=== PATIENT | male | born 1950 | race Caucasian/White ===

== ENCOUNTER 2020-10-21 07:40 | Outpatient (REF) | payer MEDICARE, SELFPAY ==
[2020-10-21 08:11] LABS: MANUAL DIFF FLAG NO
[2020-10-21 08:15] LABS: Basophils Absolute Auto 0.1 X10*3/uL (0.0-0.2); Basophils Percent Auto 0.8 % (0-2); Eosinophils Absolute Auto 0.2 X10*3/uL (0.0-0.4); Eosinophils Percent Auto 3.8 % (0-4); Hematocrit 40.5 % (42-52); Hemoglobin 13.3 g/dl (14.0-18.0); Imm Gran Abs Auto 0.03 X10*3/uL (0.00-0.03); Imm Gran Pct Auto 0.5 % (0.0-0.4); Lymphocytes Absolute Auto 1.5 X10*3/uL (1.2-4.9); Lymphocytes Percent Auto 23.6 % (20-40); Mean Corpuscular HGB Conc 32.8 g/dl (31.0-36.0); Mean Corpuscular Hemoglobin 32.6 pg (27.0-33.0); Mean Corpuscular Volume 99.3 fL (80-98); Mean Platelet Volume 10.7 fL (9.4-12.4); Monocytes Absolute Auto 0.6 X10*3/uL (0.1-1.2); Neutrophils Percent Auto 62.3 % (45-73); Platelet Count 246 X10*3/uL (160-400); Red Blood Count 4.08 X10*6/uL (4.60-5.80); Red Cell Distribution Width 14.4 % (11.0-16.0); White Blood Count 6.4 X10*3/uL (4.8-10.8)
[2020-10-21 08:25] LABS: Estimated Average Glucose 77 mg/dL; Hemoglobin A1c % 4.3 %
[2020-10-21 08:52] LABS: Alanine Aminotransferase 160 U/L (0-40); Albumin Level 4.1 g/dL (3.5-5.0); Alkaline Phosphatase 719 U/L (39-117); Anion Gap 15 (12-20); Aspartate Amino Transferase 106 U/L (5-37); Bilirubin Total 6.9 mg/dL (0.0-1.0); Blood Urea Nitrogen 17 mg/dL (9-16); Calcium 9.1 mg/dL (8.4-10.2); Carbon Dioxide 23 mmol/L (22-29); Chloride 108 mmol/L (96-108); Cholesterol 200 mg/dL; Estimated Glomerular Filt Rate > 60; Glucose Random 97 mg/dL (60-115); HDL Cholesterol 43 mg/dL; LDL Cholesterol Calculated 137 mg/dl; Potassium 5.2 mmol/L (3.3-5.1); Sodium 141 mmol/L (135-145); Total Protein 6.7 g/dL (6.5-8.0); Triglycerides 100 mg/dL
[2020-10-21 09:08] LABS: Free T4 (Free Thyroxine) 1.09 ng/dL (0.71-1.85); Prostate Specific Antigen Scr 1.18 ng/mL (<0.05-4.0); Thyroid Stimulating Hormone 1.45 uIU/mL (0.32-4.0)
[2020-10-21 09:23] LABS: Folate 17.2 ng/mL (> or = 4.0); Vitamin B12 1338 pg/mL (200-900)
== END 2020-10-21 07:41 | disposition home or self-care (01) ==
LOC: HO.LAB 07:40
PROVIDERS: PCP Internal Medicine; Visit Provider Internal Medicine
DX: E78.00 Pure hypercholesterolemia, unspecified (principal); I10 Essential (primary) hypertension; R73.02 Impaired glucose tolerance (oral)
CPT/HCPCS: 36415; 80053; 80061; 82607; 82746; 83036; 84153; 84439; 84443; 85025

== ENCOUNTER 2020-10-22 10:03 | Outpatient (REF) | payer MEDICARE, SELFPAY ==
--- NOTE | ~2020-10-22 | US_ITS ---
EXAMINATION: US ABDOMEN LIMITED CLINICAL INFORMATION: R79.89 - Other specified abnormal findings of blood chemistry. COMPARISON: Ultrasound abdomen 08/13/2016 TECHNIQUE: Real-time imaging of the right upper quadrant abdominal viscera. FINDINGS: PANCREAS: Pancreas is normal in size and contour and echogenicity. There is no pancreatic ductal distention or retroperitoneal effusion. LIVER: Liver is normal in size. There is mild increased hepatic parenchymal echogenicity suggesting mild hepatic steatosis. Scattered hepatic cysts are again noted, largest right lobe measuring 4.4 x 1.8 x 3.2 cm compared with prior measurement 3.3 x 1.7 x 1.9 cm. This also shows incomplete avascular internal septations. No solid component. There are other smaller cysts again noted. There is intrahepatic biliary ductal dilatation. No visible obstructing mass by ultrasound. No intraductal calculus or sludge. Doppler shows portal flow towards the liver. GALLBLADDER: The gallbladder is distended normally and shows no sludge or calculus or wall thickening. There is a focal small specular echo in the wall with ringdown suggesting cholesterolosis as noted on prior ultrasound. Negative sonographic Rodriguez's sign. COMMON BILE DUCT: The common duct is within limits of normal measuring 6 mm. There is intraluminal echogenicity distal duct measuring 9 mm in length. There is no associated wall thickening or intraluminal color flow. Finding may represent intraductal tumefactive sludge. Mass is not excluded, although less likely. RIGHT KIDNEY: Right kidney measures 9.6 cm in length and shows no hydronephrosis or calculi. There is normal parenchymal echogenicity and thickness. Exophytic cyst lower pole measures 2.1 cm in diameter, similar to prior ultrasound 2017. FREE FLUID: None. US/US abdomen limited IMPRESSION: 1. Intrahepatic biliary ductal dilatation. Intraluminal echogenicity lower common duct 9 mm in length without associated color flow, possibly tumefactive sludge. Mass is not excluded, although less likely. Gallbladder unremarkable. Findings may be further assessed with MRI without and with gadolinium and including MRCP sequence. 2. Unremarkable pancreas. No pancreatic ductal distention. 3. Complicated cyst right hepatic lobe 4.4 cm, prior measurement 3.3 cm in 2017. 4. Exophytic cyst lower pole right kidney 2.1 cm, stable. No hydronephrosis.
[2020-10-22 13:56] LABS: MANUAL DIFF FLAG NO
[2020-10-22 14:06] LABS: Basophils Percent Auto 0.5 % (0-2); Eosinophils Absolute Auto 0.1 X10*3/uL (0.0-0.4); Eosinophils Percent Auto 0.8 % (0-4); Hematocrit 41.4 % (42-52); Hemoglobin 13.2 g/dl (14.0-18.0); Imm Gran Abs Auto 0.02 X10*3/uL (0.00-0.03); Imm Gran Pct Auto 0.3 % (0.0-0.4); Immature Retic Fraction 12.7 % (2.3-13.4); Lymphocytes Absolute Auto 1.1 X10*3/uL (1.2-4.9); Lymphocytes Percent Auto 18.4 % (20-40); Mean Corpuscular HGB Conc 31.9 g/dl (31.0-36.0); Mean Corpuscular Hemoglobin 31.7 pg (27.0-33.0); Mean Corpuscular Volume 99.5 fL (80-98); Mean Platelet Volume 11.2 fL (9.4-12.4); Monocytes Absolute Auto 0.5 X10*3/uL (0.1-1.2); Monocytes Percent Auto 7.9 % (2-11); Neutrophils Absolute Auto 4.3 X10*3/uL (2.0-8.3); Neutrophils Percent Auto 72.1 % (45-73); Platelet Count 270 X10*3/uL (160-400); Red Blood Count 4.16 X10*6/uL (4.60-5.80); Red Cell Distribution Width 14.6 % (11.0-16.0); Retic HGB Equivalent 35.8 pg (30.0-35.0); Reticulocyte Percent 2.2 % (0.5-1.8); Reticulocytes Absolute 0.092 X10*6/uL (0.026-0.095)
[2020-10-22 14:58] LABS: Alanine Aminotransferase 165 U/L (0-40); Albumin Level 4.1 g/dL (3.5-5.0); Alkaline Phosphatase 745 U/L (39-117); Anion Gap 18 (12-20); Aspartate Amino Transferase 113 U/L (5-37); Bilirubin Direct 5.9 mg/dL (0.0-0.5); Bilirubin Total 8.7 mg/dL (0.0-1.0); Blood Urea Nitrogen 13 mg/dL (9-16); Calcium 9.1 mg/dL (8.4-10.2); Carbon Dioxide 23 mmol/L (22-29); Chloride 105 mmol/L (96-108); Estimated Glomerular Filt Rate > 60; Glucose Random 98 mg/dL (60-115); Iron 70 mcg/dL (45-160); Percent Iron Saturation 27 % (15-50); Potassium 4.5 mmol/L (3.3-5.1); Sodium 141 mmol/L (135-145); Total Iron Binding Capacity 259 mcg/dL (228-428); Total Protein 6.8 g/dL (6.5-8.0); Unsaturated Iron Binding 189 ug/dL
[2020-10-22 15:15] LABS: Ferritin 608 ng/mL (20-250)
[2020-10-22 15:46] LABS: Folate 17.1 ng/mL (> or = 4.0); Vitamin B12 1573 pg/mL (200-900)
[2020-10-23 08:35] LABS: HBsAGNum1 0.17 S/CO (0.00-0.99); Hepatitis A Antibody IgM 0.09 Index (0-0.79); Hepatitis B Surface Antigen Negative (Negative); ~Hepatitis A Antibody IgM Nonreactive (Nonreactive)
[2020-10-23 09:01] LABS: HBc Num1 0.08 S/CO (0.00-0.79); Hepatitis B Core Antibody Nonreactive (Nonreactive); ~Hepatitis B Surface Antibody NONREACTIVE (Nonreactive); ~Hepatitis C Antibody Nonreactive (Nonreactive)
== END 2020-10-22 10:04 | disposition home or self-care (01) ==
LOC: HO.HMGCX 10:03
PROVIDERS: PCP Internal Medicine; Visit Provider Internal Medicine
DX: R79.89 Other specified abnormal findings of blood chemistry (principal)
CPT/HCPCS: 36415; 76705; 80048; 80076; 82607; 82728; 82746; 83540; 85025; 85045; 86704; 86706; 86709; 86803; 87340

== ENCOUNTER 2020-10-25 09:53 | Outpatient (REF) | payer MEDICARE, SELFPAY ==
--- NOTE | ~2020-10-25 | MR_ITS ---
EXAMINATION: MRI ABDOMEN WITH AND WITHOUT CONTRAST CLINICAL INFORMATION: R/O CBD STONE R/O BILIARY STRICTURE INCLUDE MRCP COMPARISON: 10/22/2020 ultrasound TECHNIQUE: Multiple routine MRI sequences through the abdomen were obtained on a high-field 1.5Tesla MRI. Pre-and postcontrast images with 7 mL of Gadavist intravenous contrast were obtained. This included a dynamic contrast-enhanced technique. FINDINGS: Visualized lung bases are unremarkable. There is abnormal intrahepatic biliary ductal dilatation to the left hepatic lobe in particular. Unfortunately the ducts are dilated up to a central region weren't concerned that there is an ill-defined mass near the junction of the right and left intrahepatic ducts. There is much milder intrahepatic ductal dilatation on the right. The common bile duct is decompressed and unremarkable. Tiny T2 bright cyst incidentally seen in segment 4 the liver as well. Homogeneous T1 bright signal to the pancreas. No pancreatic ductal dilatation or peripancreatic inflammatory changes/fluid. Normal-appearing spleen. Normal-appearing kidneys and adrenals. No bulky adenopathy Not performed as an MR angiogram but the visualized hepatic artery is patent arising from the conjoined celiac/superior mesenteric artery. Visualized portion of the superior mesenteric vein, splenic vein, portal veins, and hepatic veins are patent although the left intrahepatic portal vein is diminutive in caliber. MR/MR abdomen wo/w con IMPRESSION: There is intrahepatic ductal dilatation seen more so in the left lobe the liver and to a lesser extent in the right lobe of the liver. These ducts are distended centrally. The appearance suggests that there is a small central mass lesion near the bifurcation of the left and right intrahepatic ducts but this is difficult to visualize a discrete lesion on the MRI. Correlation with ERCP and/or brushing will be likely needed. With this appearance and morphology, small cholangiocarcinoma would be favored. Small cholangiocarcinoma is may be very difficult to see on the MRI but the mass effect and ductal obstruction is very suspicious for possibility of a cholangiocarcinoma. This critical result was discussed with Dr. Almanza at 10/26/2020 11:12 AM and it was ascertained that the content and urgency of the report was understood at the time of direct communication.
[2020-10-25 10:00] LABS: MANUAL DIFF FLAG NO
[2020-10-25 10:08] LABS: Hematocrit 42.9 % (42-52); Mean Corpuscular Hemoglobin 32.4 pg (27.0-33.0); Mean Corpuscular Volume 99.3 fL (80-98); Red Blood Count 4.32 X10*6/uL (4.60-5.80); White Blood Count 6.2 X10*3/uL (4.8-10.8)
[2020-10-25 10:09] LABS: Basophils Absolute Auto 0.1 X10*3/uL (0.0-0.2); Basophils Percent Auto 0.8 % (0-2); Eosinophils Absolute Auto 0.2 X10*3/uL (0.0-0.4); Eosinophils Percent Auto 3.5 % (0-4); Imm Gran Abs Auto 0.03 X10*3/uL (0.00-0.03); Imm Gran Pct Auto 0.5 % (0.0-0.4); Lymphocytes Absolute Auto 1.5 X10*3/uL (1.2-4.9); Lymphocytes Percent Auto 24.8 % (20-40); Mean Corpuscular HGB Conc 32.6 g/dl (31.0-36.0); Mean Platelet Volume 10.4 fL (9.4-12.4); Monocytes Absolute Auto 0.5 X10*3/uL (0.1-1.2); Monocytes Percent Auto 8.7 % (2-11); Neutrophils Absolute Auto 3.8 X10*3/uL (2.0-8.3); Neutrophils Percent Auto 61.7 % (45-73); Platelet Count 285 X10*3/uL (160-400); Red Cell Distribution Width 14.4 % (11.0-16.0)
[2020-10-25 10:15] LABS: INTERNATIONAL NORM RATIO 1.1 (0.9-1.1); Prothrombin Time 13.4 SEC (10.8-13.0)
[2020-10-25 10:41] LABS: Alanine Aminotransferase 158 U/L (0-40); Albumin Level 4.2 g/dL (3.5-5.0); Alkaline Phosphatase 756 U/L (39-117); Amylase 88 U/L (28-100); Anion Gap 18 (12-20); Aspartate Amino Transferase 99 U/L (5-37); Bilirubin Direct 5.1 mg/dL (0.0-0.5); Bilirubin Total 7.1 mg/dL (0.0-1.0); Blood Urea Nitrogen 17 mg/dL (9-16); Carbon Dioxide 22 mmol/L (22-29); Chloride 103 mmol/L (96-108); Estimated Glomerular Filt Rate > 60; Glucose Random 106 mg/dL (60-115); Lipase 68 U/L (8-78); Potassium 4.3 mmol/L (3.3-5.1); Sodium 139 mmol/L (135-145)
[2020-10-26 13:16] LABS: Carbohydrate Antigen 19-9 204 U/mL (<34)
== END 2020-10-25 09:54 | disposition home or self-care (01) ==
LOC: HO.MRI 09:53
PROVIDERS: Visit Provider Internal Medicine
DX: R17 Unspecified jaundice (principal); R93.2 Abnormal findings on diagnostic imaging of liver and biliary tract; R93.5 Abnormal findings on diagnostic imaging of other abdominal regions, including retroperitoneum
CPT/HCPCS: 36415; 74183; 80051; 80076; 82150; 82565; 82947; 83690; 84520; 85025; 85610; 86301; A9585

== ENCOUNTER → 2021-04-14 09:02 | Outpatient (REF) | payer MEDICARE, SELFPAY ==
--- NOTE | 2021-04-14 09:05 | CA_ITS ---
Transthoracic Echocardiogram Patient (Last, First, Middle): Osvaldo Reza J Gender: Male Date of : 1950 Age: 70 Procedure Date: 04/14/2021 Procedure Type: Transthoracic Echocardiogram Location: OP Height: 175.26 cm Weight: 69.4 kg BSA: 1.84 m2 Heart Rate: bpm BP: 120 / 70 mmHg Outpatient Coder: Referring MD: Ramón Isaacs MD Symptoms: I10 - Essential (primary) hypertension Study Quality: Fair ECG Rhythm: Sinus Conclusions: - The left ventricular systolic function is normal. The calculated ejection fraction is 61% by biplane method. - Mildly increased right ventricular cavity size. - The right atrium is moderately dilated. - No obvious valvular pathology seen on this study. Findings Left Ventricle Normal left ventricular cavity size. There is mildly increased left ventricular wall thickness. The left ventricular systolic function is normal. The calculated ejection fraction is 61% by biplane method. There is no evidence of regional wall motion abnormalities. Right Ventricle Mildly increased right ventricular cavity size. There is normal right ventricular systolic function. Atria The left atrium is normal in size. The right atrium is moderately dilated. Aortic Valve There is a normal trileaflet aortic valve. There is no aortic valve stenosis. There is no aortic valve regurgitation. Mitral Valve The mitral valve appears normal. There is trace mitral valve regurgitation. There is no mitral valve stenosis. Pulmonic Valve The pulmonic valve was not well visualized. Tricuspid Valve Normal tricuspid valve structure. There is trace tricuspid valve regurgitation. The pulmonary artery systolic pressure is normal. Great Vessels The aortic annulus, sinuses of valsalva, and asc aorta are normal in size. Venous The inferior vena cava is normal in size and collapses greater than 50% with inspiration. Pericardium/Pleural There is no evidence of pericardial effusion. Prior Study Comparison Changes noted compared to prior study dated: 08/21/2016. Right sided chambers appear enlarged. Recommendations, Care & Conclusions No obvious valvular pathology seen on this study. Measurements 2D Linear Measurements IVSd: 1.03 0.6-0.9/0.6-1.0 cm LVIDd: 4.47 3.9-5.3/4.2-5.9 cm LVIDd Index: 2.43 2.4-3.2/2.2-3.1 cm/m2 LVIDs: 2.93 2.0-3.6 cm LVPWd: 1.01 0.7-1.1 cm Ao Root: 3.30 2.1-3.5 cm LA Diam: 3.60 2.7-3.8/3.0-4.0 cm LAIDs Index: 1.96 1.5-2.3 cm/m2 LV Mass: 194.04 67-162/88-224 g LV Mass Index: 105.46 43-95/49-115 g/m2 LVOT Diam: 2.10 3.0+(-)1.3 cm 2D Systolic Function EF 4C: 64.30 >55% EF 2C: 56.50 >55% EF BiP: 61.20 >55% Mitral Valve MV Pk E: 0.52 MV PK A: 0.71 MV Decel Time: 407.00 E/A: 0.70 E'Lateral: 9.79 E'Medial: 7.07 E/E' Med: 7.40 E/E' Lat: 5.30 PHT: 119.00 MVA PHT: 1.85 Decel Alexander: 1.29 Aortic Valve AoV Pk Edwin: 1.54 AoV Mn Edwin: 1.01 AoV VTI: 0.29 AoV Pk Grad: 9.00 Aov Mn Grad: 5.00 GILSON Cont.VTI: 2.76 LVOT LVOT Pk Edwin: 1.19 LVOT Mn Edwin: 0.81 LVOT VTI: 0.23 LVOT Pk Grad: 6.00 LVOT Mn Grad: 4.00 LVOT Diam: 2.10 LVOT Area: 3.46 Diastolic Function MV Pk E: 0.52 MV Pk A: 0.71 E/A: 0.70 E'Medial: 7.07 E/E' Med: 7.40 E' Laterial: 9.79 E/E' Lat: 5.30 Right Ventricle TAPSE (mm): 26.00 TVS' Edwin: 18.00 Tricuspid Valve TR Pk Edwin: 1.34 TR Pk Grad: 7.00 Great Vessels Aorta Ao Root-2D: 3.30 2.0-3.7 cm Ao Asc: 3.60 2.1-3.4 cm Updated in Other Vendor System with Status of Final Raul Suarez MD electronically signed on 04/14/2021 4:59:17 PM with status of Final
--- NOTE | 2021-04-14 09:05 | CA_ITS ---
Acquisition Time: 2021-04-14 10:16:04 Total Exercise Time: 00:10:00 Test Indications: Screening for CAD Medications: METOPROLOL DILTIAZEM Protocol: PHILL Max HR: 123 BPM 81% of Pred: 151 BPM Max BP: 150/078 mmHG Max Work Load: 11.7 METS Exercise stress test with exercise 10 min of Phill protocol, achieving 81% MPHR, with mild sob, no chest discomfort, with isolated PAC, with normotensive response to exercise, wth nondiagnostic EKG for ischemia due to suboptimal heart rate however there was J point depression with upsloping ST segements noted which becomes nonspecific ST abnormality later in recovery. Test reviewed with Dr Merlos. Referred By: Ramón Isaacs Overread By: EFRA MATTHEWS
== END ==
LOC: HO.CARD 09:02
PROVIDERS: PCP Internal Medicine; Visit Provider Internal Medicine
DX: I10 Essential (primary) hypertension (principal)
CPT/HCPCS: 93017; 93306

== ENCOUNTER 2021-06-20 11:38 | Outpatient (REF) | payer MEDICARE, SELFPAY ==
--- NOTE | ~2021-06-20 | US_ITS ---
EXAMINATION: US ABDOMEN LIMITED CLINICAL INFORMATION: Ascites. COMPARISON: Previous abdominal ultrasound and MRI of the abdomen September 2020 TECHNIQUE: Limited 4 quadrant abdominal ultrasound FINDINGS: There is a moderate amount of ascites in the lower abdomen and pelvis. US/US abdomen limited IMPRESSION: Ascites.
== END 2021-06-20 11:39 | disposition home or self-care (01) ==
LOC: HO.US 11:38
PROVIDERS: PCP Internal Medicine; Visit Provider Internal Medicine
DX: C22.1 Intrahepatic bile duct carcinoma (principal); R14.0 Abdominal distension (gaseous); R79.89 Other specified abnormal findings of blood chemistry; R18.8 Other ascites
CPT/HCPCS: 76705

== ENCOUNTER 2021-06-24 13:16 | Day surgery (SDC) | payer MEDICARE, SELFPAY ==
--- NOTE | ~2021-06-24 | US_ITS ---
EXAMINATION: ULTRASOUND-GUIDED PARACENTESIS. CLINICAL INFORMATION: Intrahepatic bile duct carcinoma. COMPARISON: None TECHNIQUE: Following explaining ultrasound-guided paracentesis procedure, benefits and risk, a written consent was obtained. Preliminary ultrasound imaging was performed and optimal site was selected along the right lower quadrant and marked. The marked site was cleaned and draped in usual sterile manner. 1% lidocaine was injected puncture site. Through a small skin incision a 5 [employer] catheter was advanced into the peritoneal space. After observing fluid return, stylet was withdrawn and catheter connected to vacuum bottle via a connecting cannula. After obtaining all fluid and observing normal fluid return, the catheter was withdrawn and complete hemostasis achieved at puncture site. Sterile dressing applied postprocedure. FINDINGS: On preliminary ultrasound imaging there is moderate ascites noted. Successful therapeutic paracentesis performed from right lower quadrant with approximately 3.9 L of clear yellowish fluid drained. US/US paracentesis abd w/image IMPRESSION: Successful ultrasound-guided therapeutic paracentesis performed.
[2021-06-24 14:21] LABS: MANUAL DIFF FLAG NO
[2021-06-24 14:27] VITALS: BMI 24.7
[2021-06-24 14:27] LABS: Basophils Percent Auto 0.4 % (0-2); Eosinophils Absolute Auto 0.1 X10*3/uL (0.0-0.4); Eosinophils Percent Auto 0.9 % (0-4); Hematocrit 32.2 % (42.0-52.0); Hemoglobin 10.3 g/dl (14.0-18.0); Imm Gran Abs Auto 0.01 X10*3/uL (0.00-0.03); Imm Gran Pct Auto 0.1 % (0.0-0.4); Lymphocytes Absolute Auto 0.8 X10*3/uL (1.2-4.9); Lymphocytes Percent Auto 11.2 % (20-40); Mean Corpuscular Hemoglobin 32.3 pg (27.0-33.0); Mean Corpuscular Volume 100.9 fL (80.0-98.0); Monocytes Absolute Auto 1.1 X10*3/uL (0.1-1.2); Monocytes Percent Auto 15.1 % (2-11); Neutrophils Percent Auto 72.3 % (45-73); Red Blood Count 3.19 X10*6/uL (4.60-5.80); Red Cell Distribution Width 15.6 % (11.0-16.0)
[2021-06-24 14:43] LABS: INTERNATIONAL NORM RATIO 1.2 (0.9-1.1); Prothrombin Time 13.5 SEC (9.9-13.0)
[2021-06-24 14:45] LABS: Partial Thromboplastin Time 28.3 SEC (24.1-38.0)
[2021-06-24 14:56] LABS: Platelet Count 76 X10*3/uL (160-400)
[2021-06-24] MEDS: Lidocaine HCl 1 % MPF 5 ML VIAL SUBCUT (15:56)
[2021-06-24 15:58] VITALS: BP 128/68; PULSE 70; RESP 17; TEMP 36.2; O2SAT 98
[2021-06-24 17:00] VITALS: BP 138/72; PULSE 66; RESP 20; O2SAT 97
--- NOTE | 2021-06-24 17:22 | PC.NURSE ---
PATIENT ASSISTED TO DRESS. NO COMPLAINTS OF DIZZINESS. NO NAUSEA. NO PAIN REPORTED.
[2021-06-24 17:34] LABS: MN% 93.7 %; PMN% 6.3 %; WBC Peritoneal Fluid 0.129 X10*3/uL
[2021-06-24 18:07] LABS: RBC Peritoneal Fluid < 0.002 X10*6/uL
[2021-06-24 18:08] LABS: BF Shift QC OK YES; Man Diluent Bkgrd OK YES
[2021-06-24 18:09] LABS: Lymphocyte Peritoneal Fl 3 %; Neutrophils Peritoneal Fluid 2 %
[2021-06-24 18:10] LABS: Other Peritioneal Fl 95 %
[2021-06-25 08:37] LABS: pH Peritoneal Fluid 7.61
[2021-06-25 08:39] LABS: Albumin Peritoneal Fluid 0.3
[2021-06-25 08:40] LABS: Total Protein Peritoneal Fluid 0.7
[2021-06-25 08:41] LABS: Glucose Peritoneal Fluid 109; LDH Peritoneal Fluid 35
[2021-06-25 08:42] LABS: Creatinine Peritoneal Fluid 0.7
[2021-06-25 08:43] LABS: Amylase Peritoneal Fluid 65
== END 2021-06-24 17:23 | disposition home or self-care (01) ==
PROVIDERS: Radiology Diagnostic Radiology; PCP Internal Medicine; Visit Provider Internal Medicine
DX: R18.8 Other ascites (principal); C22.1 Intrahepatic bile duct carcinoma; R14.0 Abdominal distension (gaseous); R79.89 Other specified abnormal findings of blood chemistry; I10 Essential (primary) hypertension; R73.02 Impaired glucose tolerance (oral); F41.1 Generalized anxiety disorder; Z79.899 Other long term (current) drug therapy; Z79.82 Long term (current) use of aspirin; Z88.8 Allergy status to other drugs, medicaments and biological substances; Z87.891 Personal history of nicotine dependence
CPT/HCPCS: 36415; 49083; 82042; 82150; 82945; 83615; 83986; 84157; 85025; 85610; 85730; 87070; 87073; 87205; 89051

== ENCOUNTER 2021-07-06 12:51 | Inpatient (IN) | payer MEDICARE, SELFPAY ==
[2021-07-06] VITALS (7 sets, daily range): BP systolic 82–120; BP diastolic 57–77; PULSE 73–120; RESP 16–22; TEMP 36.3–36.4; O2SAT 73–100; BMI 24.1
--- NOTE | 2021-07-06 13:11 | ED_ITS ---
HPI - General Adult General Chief complaint: GI Bleed Stated complaint: UNRESPONSIVE EPISODES W/LG AMT VOMITING BLOOD Time Seen by Provider: 07/06/21 12:55 Source: patient Mode of arrival: EMS Limitations: no limitations History of Present Illness HPI narrative: This is a 70-year-old male past medical history significant for hypertension, ascites, portal vein thrombosis, anxiety, intrahepatic bile duct carcinoma, cholangiocarcinoma presents to the emergency department weakness and hematemesis since this morning. According to EMS the states that patient has been vomiting clots of bright red blood, EMS notes that when they arrived on scene he had filled entire bucket with vomit that was bright red in color with evident blood clots. Patient tells me that this has happened to him before, last time this occurred he had to get transfused and intubated, he believes it was a bleeding varices. He also notes he has had an endoscopy within the past week.He also mentions that he only has 1/3 of his liver left. Patient also reports shortness of breath, on the ambulance he was saturating 76% on room air, he was put on a non-rebreather and was saturating 96%. Patient denies chest pain, fevers, chills, abdominal pain, blood in stool. Patient full code. Onset (ago): day(s) (1) Radiation: non-radiation Severity: severe Relieving factors: none Exacerbating factors: none Associated symptoms: nausea/vomiting (vomiting bright red blood ) and weakness Treatments prior to arrival: none Related Data Home Medications Medication Instructions Recorded Confirmed nystatin 100,000 unit/mL oral 5 ml PO QID 07/06/21 07/06/21 suspension pantoprazole 40 mg tablet,delayed 1 tab PO BID 07/06/21 07/06/21 release sucralfate 1 gram tablet 1 tab PO QID 07/06/21 07/06/21 Previous Rx's Medication Instructions Recorded spironolactone 25 mg tablet 25 mg PO DAILY 30 Days #30 tab 06/25/21 (Aldactone) Allergies Allergy/AdvReac Type Severity Reaction Status Date / Time atorvastatin Allergy Mild insomnia Verified 06/24/21 14:23 lisinopril Allergy Mild cough Verified 06/24/21 14:23 losartan Allergy Mild increase Verified 06/24/21 14:23 creatinine Review of Systems Review of Systems: Constitutional : No Weight loss, No Fever, No Chills, + Fatigue, + Malaise ENT/Mouth : No sore throat, No Rhinorrhea Eyes: No Eye Pain, No Swelling, No Redness Cardiovascular : No Chest Pain, + SOB, + Dyspnea on Exertion, No Orthopnea, No Edema, No Palpitations Respiratory : No Cough, No Sputum, No Wheezing Gastrointestinal : No Nausea, No Vomiting, No Diarrhea, No Constipation, No abdominal Pain, No Hematochezia, No Melena, + Hematemesis Genitourinary : No Dysuria, No Urinary Frequency, No Hematuria, Musculoskeletal : No joint pain, No Myalgias, No Joint Swelling Skin : No Skin Lesions, No rash Neuro : No Weakness, No Numbness, No Dizziness, No Headache All other systems reviewed and are negative Yes all other systems are reviewed and are negative [facility] Past Medical History Attestation statement: The following information was validated with the patient. Source: old records reviewed Medical History Anxiety Hypercholesterolemia Hypertension Impaired glucose tolerance Surgical History No pertinent past surgical history Family History Family History Father No problems noted. Mother Stroke Hypertension Sister Breast cancer Social History Social History Housing: House Alcohol intake: current Alcohol intake frequency: a few times a week Alcohol type: beer Patient Tobacco Use Status: Former Tobacco user Tobacco use type: Cigarette e-Cigarette/Vaping Use: Never Used Second Hand Smoke Exposure: No Advance Directives: No Advance Directives Information Provided: Yes service: No Current occupational status: retired Physical Exam Vital Signs: Vital Signs: Last Vital Signs Temp 97.4 F 07/06/21 14:45 Pulse 105 H 07/06/21 14:45 Resp 20 07/06/21 14:45 BP 120/75 07/06/21 14:45 Pulse Ox 100 07/06/21 13:04 Oxygen Flow Rate 3 07/06/21 13:04 BMI result Body Mass Index 24.1 Patient noted to be tachycardic and tachypneic. Saturating 100% on 8 L. Appearance: Alert.? Oriented X3.? Patient in mild respiratory distress patient vomiting bright red blood, with blood clots Head: Normocephalic, atraumatic, no step-offs or deformities Eyes: Pupils equal, round and reactive to light.? ENT: Pharynx normal.? Neck: Normal inspection.? Neck supple.? CVS: +rapid rate regular rate.? Pulses normal.? Respiratory: +mild respiratory distress.? Breath sounds normal.? Abdomen: + abdomen distended, with positive fluid wave..? Skin: Skin warm and dry.? Normal skin color.? Normal skin turgor.? Extremities: No lower extremity edema.? No calf ttp. 5/5 strength to bilateral upper and lower extremities Back: No midline tenderness, no C-spine tenderness, full range of motion, no CVA tenderness bilaterally Neuro: Oriented X 3.? No motor deficit.? No sensory deficit. Course Reevaluation(s) Reevaluation #1: Dr. Almanza has been notified and will be arriving within the hour. 2 units of packed red blood cells have been ordered. Consent was obtained. Time: 13:20 Reevaluation #2: Spoke to the family that tells me that the Wednesday before they drained 3.9 L of ascitic fluid from his abdomen. A Wednesday after that he went to [email or web address] where he was noted to have clot in his portal vein, patient was given blood thinners few days later he started vomiting blood, suspected to have an ulcer. He had an endoscopy done this past Wednesday which confirmed an ulcer, they think this is a gastric ulcer. I will request records from [email or web address] at this time. Time: 13:33 Reevaluation #3: Octreotide drip requested by and vitamin K ordered. Patient will be going to the ICU Dr. Gray. Time: 15:43 Medical Decision Making MDM Narrative Medical decision making narrative: 1300 70-year-old male Past medical history significant for cholangiocarcinoma (left hepatectomy with excision of bile duct portal lymphadenectomy and Elias-en-Y hepato jejunostomy), intrahepatic bile duct carcinoma, hypertension brought into the emergency department via ambulance with concerns of hematemesis w/ blood red blood and clots, fatigue and shortness of breath. Upon physical examination patient is noted to be hypotensive, hypoxic, and vomiting bloody emesis with bright red clots. Patient also noted to be tachycardic with a rapid regular rhythm. Lungs are clear. Abdomen is diste nded, positive fluid wave with ascites. No focal neuro deficits. Patient mentating well. Able to move all extremities. Plan at this time is to obtain basic labs, type and cross, EKG. Ordered 2 u nits of blood, fluids, octreotide. Medical Records Medical records reviewed: Yes I reviewed the patient's medical records. Lab Data Lab results reviewed: Yes I reviewed the patient's lab results. Result diagrams: 07/06/21 13:18 07/06/21 13:13 Labs: Lab Results 07/06/21 07/06/21 07/06/21 Range/Units 13:13 13:13 13:13 WBC (4.8-10.8) X10*3/uL RBC (4.60-5.80) X10*6/uL Hgb (14.0-18.0) g/dl Hct (42.0-52.0) % MCV (80.0-98.0) fL MCH (27.0-33.0) pg MCHC (31.0-36.0) g/dl RDW (11.0-16.0) % Plt Count (160-400) X10*3/uL MPV (9.4-12.4) fL Immature Gran % (Auto) (0.0-0.4) % Neut % (Auto) (45-73) % Lymph % (Auto) (20-40) % Menard % (Auto) (2-11) % Eos % (Auto) (0-4) % Baso % (Auto) (0-2) % Lymph # (Auto) (1.2-4.9) X10*3/uL Menard # (Auto) (0.1-1.2) X10*3/uL Eos # (Auto) (0.0-0.4) X10*3/uL Baso # (Auto) (0.0-0.2) X10*3/uL Abs Immat Gran (auto) (0.00-0.03) X10*3/uL Absolute Neuts (auto) (2.0-8.3) x10*3/uL Absolute Nucleated RBC (0.0-0.012) X10*3/uL Nucleated RBC % (auto) (0.0-0.2) /100WBC PT 15.0 H (9.9-13.0) SEC INR 1.3 H (0.9-1.1) APTT 26.7 (24.1-38.0) SEC Sodium 136 (135-145) mmol/L Potassium 3.5 (3.3-5.1) mmol/L Chloride 106 (96-108) mmol/L Carbon Dioxide 19 L (22-29) mmol/L Anion Gap 15 (12-20) BUN 13 (9-16) mg/dL Creatinine 0.78 (0.5-1.4) mg/dL Estim Creat Clear Calc 86.4 Estimated GFR > 60 Random Glucose 163 H D (60-115) mg/dL Calcium 7.8 L D (8.4-10.2) mg/dL Total Bilirubin 0.7 (0.0-1.0) mg/dL AST 28 D (5-37) U/L ALT 24 (0-40) U/L Alkaline Phosphatase 220 H D (39-117) U/L Ammonia 41 (13-55) umol/L Total Protein 4.8 L D (6.5-8.0) g/dL Albumin 2.2 L D (3.5-5.0) g/dL COVID-19 ([facility]) (Negative) COVID-19 Clin [facility] Blood Type Antibody Screen Crossmatch 07/06/21 07/06/21 07/06/21 Range/Units 13:18 13:28 13:29 WBC 4.6 L (4.8-10.8) X10*3/uL RBC 2.28 L D (4.60-5.80) X10*6/uL Hgb 7.2 L D (14.0-18.0) g/dl Hct 22.3 L D (42.0-52.0) % MCV 97.8 (80.0-98.0) fL MCH 31.6 (27.0-33.0) pg MCHC 32.3 (31.0-36.0) g/dl RDW 16.9 H (11.0-16.0) % Plt Count 82 L (160-400) X10*3/uL MPV 11.3 (9.4-12.4) fL Immature Gran % (Auto) 0.4 (0.0-0.4) % Neut % (Auto) 59.5 (45-73) % Lymph % (Auto) 26.0 (20-40) % Menard % (Auto) 11.4 H (2-11) % Eos % (Auto) 2.0 (0-4) % Baso % (Auto) 0.7 (0-2) % Lymph # (Auto) 1.2 (1.2-4.9) X10*3/uL Menard # (Auto) 0.5 (0.1-1.2) X10*3/uL Eos # (Auto) 0.1 (0.0-0.4) X10*3/uL Baso # (Auto) 0.0 (0.0-0.2) X10*3/uL Abs Immat Gran (auto) 0.02 (0.00-0.03) X10*3/uL Absolute Neuts (auto) 2.7 (2.0-8.3) x10*3/uL Absolute Nucleated RBC 0.000 (0.0-0.012) X10*3/uL Nucleated RBC % (auto) 0.0 (0.0-0.2) /100WBC PT (9.9-13.0) SEC INR (0.9-1.1) APTT Cancelled (24.1-38.0) SEC Sodium (135-145) mmol/L Potassium (3.3-5.1) mmol/L Chloride (96-108) mmol/L Carbon Dioxide (22-29) mmol/L Anion Gap (12-20) BUN (9-16) mg/dL Creatinine (0.5-1.4) mg/dL Estim Creat Clear Calc Estimated GFR Random Glucose (60-115) mg/dL Calcium (8.4-10.2) mg/dL Total Bilirubin (0.0-1.0) mg/dL AST (5-37) U/L ALT (0-40) U/L Alkaline Phosphatase (39-117) U/L Ammonia (13-55) umol/L Total Protein (6.5-8.0) g/dL Albumin (3.5-5.0) g/dL COVID-19 ([facility]) (Negative) COVID-19 Clin [facility] Blood Type O Positive Antibody Screen NEGATIVE Crossmatch See Detail 07/06/21 Range/Units 15:15 WBC (4.8-10.8) X10*3/uL RBC (4.60-5.80) X10*6/uL Hgb (14.0-18.0) g/dl Hct (42.0-52.0) % MCV (80.0-98.0) fL MCH (27.0-33.0) pg MCHC (31.0-36.0) g/dl RDW (11.0-16.0) % Plt Count (160-400) X10*3/uL MPV (9.4-12.4) fL Immature Gran % (Auto) (0.0-0.4) % Neut % (Auto) (45-73) % Lymph % (Auto) (20-40) % Menard % (Auto) (2-11) % Eos % (Auto) (0-4) % Baso % (Auto) (0-2) % Lymph # (Auto) (1.2-4.9) X10*3/uL Menard # (Auto) (0.1-1.2) X10*3/uL Eos # (Auto) (0.0-0.4) X10*3/uL Baso # (Auto) (0.0-0.2) X10*3/uL Abs Immat Gran (auto) (0.00-0.03) X10*3/uL Absolute Neuts (auto) (2.0-8.3) x10*3/uL Absolute Nucleated RBC (0.0-0.012) X10*3/uL Nucleated RBC % (auto) (0.0-0.2) /100WBC PT (9.9-13.0) SEC INR (0.9-1.1) APTT (24.1-38.0) SEC Sodium (135-145) mmol/L Potassium (3.3-5.1) mmol/L Chloride (96-108) mmol/L Carbon Dioxide (22-29) mmol/L Anion Gap (12-20) BUN (9-16) mg/dL Creatinine (0.5-1.4) mg/dL Estim Creat Clear Calc Estimated GFR Random Glucose (60-115) mg/dL Calcium (8.4-10.2) mg/dL Total Bilirubin (0.0-1.0) mg/dL AST (5-37) U/L ALT (0-40) U/L Alkaline Phosphatase (39-117) U/L Ammonia (13-55) umol/L Total Protein (6.5-8.0) g/dL Albumin (3.5-5.0) g/dL COVID-19 ([facility]) Negative (Negative) COVID-19 Clin Com See Note Blood Type Antibody Screen Crossmatch Critical Care Time Critical Care Time Critical Care Time: Yes Total Critical Care Time: 60 Attestation: I attest to this time spent taking care of the patient reviewing labs, imaging, records, speaking to GI, salvage determiner. Discharge Plan Discharge Clinical Impression: Acute upper GI bleeding Patient Disposition: Admitted As Inpatient
[2021-07-06 13:27] LABS: MANUAL DIFF FLAG NO
[2021-07-06 13:29] LABS: Basophils Percent Auto 0.7 % (0-2); Eosinophils Absolute Auto 0.1 X10*3/uL (0.0-0.4); Hematocrit 22.3 % (42.0-52.0); Hemoglobin 7.2 g/dl (14.0-18.0); Imm Gran Abs Auto 0.02 X10*3/uL (0.00-0.03); Imm Gran Pct Auto 0.4 % (0.0-0.4); Lymphocytes Absolute Auto 1.2 X10*3/uL (1.2-4.9); Mean Corpuscular HGB Conc 32.3 g/dl (31.0-36.0); Mean Corpuscular Hemoglobin 31.6 pg (27.0-33.0); Mean Corpuscular Volume 97.8 fL (80.0-98.0); Mean Platelet Volume 11.3 fL (9.4-12.4); Monocytes Absolute Auto 0.5 X10*3/uL (0.1-1.2); Monocytes Percent Auto 11.4 % (2-11); Neutrophils Absolute Auto 2.7 x10*3/uL (2.0-8.3); Neutrophils Percent Auto 59.5 % (45-73); Red Blood Count 2.28 X10*6/uL (4.60-5.80); Red Cell Distribution Width 16.9 % (11.0-16.0); White Blood Count 4.6 X10*3/uL (4.8-10.8)
--- NOTE | 2021-07-06 13:30 | PC.NURSE ---
pt brought to ed due to vomiting dark colored blood with multiple clots. pt states early this afternoon he went to the bathroom and once he started walking from the bathroom he got weak and dizzy, shortly after he began vomiting dark colored blood with clots. Pt states he has esophageal varices and was hospitalized approximately 1wk ago in [facility] for the same thing. per and daughter pt has been having multiple episodes of vomiting blood. pt's reports he had a tap done here at [facility] approximately 2wks ago. pt alert and oriented, vss, denies pain, afebrile. pt satting 99-100% on 2L NC. pt denies sob/dizziness/headache. LSCTA. [address] in his right upper inner arm by Dr. Dover using ultra sound guidance. labs drawn, iv fluids hung. meds given. pt's and daughter at his bedside. Dr. Almanza was notified by Dr. Dover.
[2021-07-06 13:34] LABS: Ammonia 41 umol/L (13-55); INTERNATIONAL NORM RATIO 1.3 (0.9-1.1)
[2021-07-06 13:34] LABS: Platelet Count 82 X10*3/uL (160-400)
[2021-07-06] MEDS: 0.9 % Sodium Chloride 1,000 ML 999 ML IV (13:37)
[2021-07-06] MEDS: Octreotide Acetate 100 MCG/ML AMPUL 50 MCG IVPUSH (13:38)
[2021-07-06] MEDS: ondansetron HCL 4 MG/2 ML VIAL IVPUSH (13:41)
[2021-07-06 13:43] LABS: Alanine Aminotransferase 24 U/L (0-40); Albumin Level 2.2 g/dL (3.5-5.0); Alkaline Phosphatase 220 U/L (39-117); Anion Gap 15 (12-20); Aspartate Amino Transferase 28 U/L (5-37); Bilirubin Total 0.7 mg/dL (0.0-1.0); Blood Urea Nitrogen 13 mg/dL (9-16); Calcium 7.8 mg/dL (8.4-10.2); Carbon Dioxide 19 mmol/L (22-29); Chloride 106 mmol/L (96-108); Creatinine Clr Calc Pharmacy 86.4; Estimated Glomerular Filt Rate > 60; Glucose Random 163 mg/dL (60-115); Potassium 3.5 mmol/L (3.3-5.1); Sodium 136 mmol/L (135-145); Total Protein 4.8 g/dL (6.5-8.0)
[2021-07-06] MEDS: Pantoprazole Sodium 40 MG/10 ML VIAL IVPUSH (13:44)
[2021-07-06 13:45] LABS: Partial Thromboplastin Time 26.7 SEC (24.1-38.0)
--- NOTE | 2021-07-06 14:35 | PC.NURSE ---
blood transfusion started. 2 uints PRC infusing. verified by 2 RNs prior to starting. pt afebrile, vss. LSCTA. pt's at his bedside.
--- NOTE | 2021-07-06 15:07 | PHA.MEDREC ---
Pharmacy Consult ? Medication Reconciliation Pharmacy has completed the medication reconciliation. Family reports that all BP medications were stopped at last hopsital admission. Family has been monitoring BP since and it has not increased. Michelle Díaz, PharmD
[2021-07-06] MEDS: Metoclopramide HCl 10 MG/2 ML VIAL IVPUSH (15:18)
--- NOTE | 2021-07-06 15:20 | MHC.SHP ---
Pre-Procedural Eval Section A Date of Service: 07/06/21 The patient is an INPATIENT: Yes The History & Physical has been completed within 30 days and I have reviewed it.: Yes Section B Chief Complaint: UNRESPONSIVE EPISODES W/LG AMT VOMITING BLOOD Allergies: Allergies Allergy/AdvReac Type Severity Reaction Status Date / Time atorvastatin Allergy Mild insomnia Verified 06/24/21 14:23 lisinopril Allergy Mild cough Verified 06/24/21 14:23 losartan Allergy Mild increase Verified 06/24/21 14:23 creatinine Plan I have reviewed the history and physical and performed a pertinent physical examination on my patient. No changes have occurred unless specified.
--- NOTE | 2021-07-06 15:21 | PM.EVENT ---
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 Over the past month or so he has developed problems with portal vein thrombosis, ascites, and UGI bleeding. EGD at [facility] approx 1 week ago reportedly revealed esophageal varices which were banded and a gastric ulcer. He has been on Sucralfate and omeprazoe since then. He developed recurrent hematemsis today with melena. Diff dx: Recurrent variceal bleed and/or Gastric ulcer bleed. Rec: Continue supportive measures, IV PPI, IV Sandostatin, Transfuse PRBC's, and follow labs. EGD with GA today. Full consent obtained from patient and family, including risks of bleeding, perforation, aspiration, etc. He will need an eventual repeat paracentesis for comfort as well.D/W patient and family in detail. Thanks
[2021-07-06 15:41] LABS: COVID-19 Test Negative (Negative); IDNOW Serial# 9DD0AD1C
--- NOTE | 2021-07-06 15:45 | ECG_ITS ---
Test Reason : GI BLEED Blood Pressure : / mmHG Vent. Rate : 089 BPM Atrial Rate : 089 BPM P-R Int : 158 ms QRS Dur : 064 ms QT Int : 366 ms P-R-T Axes : 077 -22 021 degrees QTc Int : 445 ms Normal sinus rhythm Low voltage QRS Cannot rule out Anterior infarct , age undetermined Abnormal ECG When compared with ECG of 31-JUL-2016 08:12, Premature atrial complexes are no longer Present QRS voltage has decreased Referred By: Ricardo Choi Electronically Signed By:Gume Merlos
--- NOTE | 2021-07-06 16:06 | P.HPCC_ITS ---
History of Present Illness Date of Service: 07/06/21 Attending physician on admission: Rubi Gray Chief Complaint: UGI bleed/syncope A 70-year-old male with no significant past medical history other than treated hypertension well up until September of this year when it was discovered that he had ache cholangiocarcinoma and he underwent a left hepatectomy and a Elias-en-Y procedure for diversion of common bile duct and probably as a result of a prothrombotic state diva has developed a portal vein thrombosis and portal hypertension with a small volume ascites which had just recently been tapped in the was no evidence of infection nor any malignant cells probably resulting from portal vein thrombosis and he has documented varices esophageal and gastric previous bleeding from a gastric ulcer presented with sudden onset of hematemesis and apparently a syncopal episode and came in sinus tachycardia with orthostatic changes and as now received 2 units of packed red cells for hemog lobin of 7 and is going to have a upper endoscopy to look for a source to control Currently awake and alert and able to give me the story himself He had chemotherapy and radiation which ended in April of this year Currently placed on octreotide due to the portal vein thrombosis to try to decompress the portal venous system Review of Systems Review of Systems: Yes all other systems are reviewed and are negative [facility] Past Medical History Medical History (Updated 07/06/21 @ 16:29 by Rubi Gray MD) Anxiety Gastric ulcer Hypercholesterolemia Hypertension Impaired glucose tolerance Portal hypertension Family History Family History Father No problems noted. Mother Stroke Hypertension Sister Breast cancer Surgical History Surgical History No pertinent past surgical history Social History Social History Housing: House Alcohol intake: current Alcohol intake frequency: a few times a week Alcohol type: beer Patient Tobacco Use Status: Former Tobacco user Tobacco use type: Cigarette e-Cigarette/Vaping Use: Never Used Second Hand Smoke Exposure: No Advance Directives: No Advance Directives Information Provided: Yes service: No Current occupational status: retired Meds Allergies Allergy/AdvReac Type Severity Reaction Status Date / Time atorvastatin Allergy Mild insomnia Verified 06/24/21 14:23 lisinopril Allergy Mild cough Verified 06/24/21 14:23 losartan Allergy Mild increase Verified 06/24/21 14:23 creatinine Active Medications: Current Medications Octreotide Acetate 500 mcg/ (Sodium Chloride) 501 mls @ 50.1 mls/hr IVCONT .Q10H [facility] Sodium Chloride (Ns) 1,000 mls @ 100 mls/hr IVCONT .Q10H [facility] Pharmacy Consult (Consult Rx Perform Med Rec) 1 each MISCELLANE ONCE PRN PRN Reason: Consult order Home Medications Medication Instructions Recorded Confirmed Last Taken Type nystatin 100,000 unit/mL oral 5 ml PO QID 07/06/21 07/06/21 Unknown History suspension pantoprazole 40 mg tablet,delayed 1 tab PO BID 07/06/21 07/06/21 Unknown History release sucralfate 1 gram tablet 1 tab PO QID 07/06/21 07/06/21 Unknown History Physical Exam Vital Signs: Vital Signs: Last Vital Signs Temp 97.4 F 07/06/21 14:45 Pulse 105 H 07/06/21 14:45 Resp 20 07/06/21 14:45 BP 120/75 07/06/21 14:45 Pulse Ox 100 07/06/21 13:04 Oxygen Flow Rate 3 07/06/21 13:04 BMI result Body Mass Index 24.1 Awake and alert with systolic pressure of 110 in the supine position and sinus tachycardia at a rate of 110 and an EKG with no acute ST-T changes Bedside echo showed globally normal anatomy hyperdynamic left and right ventricles no primary valve or pericardial disease Neck veins flat carotid upstrokes adequate Abdomen with midline scar but soft good bowel sounds no palpable organomegaly Lungs are clear Results Labs CBC and Chem 7: 07/06/21 13:18 07/06/21 13:13 Labs: Laboratory Results - last 24 hr 07/06/21 07/06/21 07/06/21 13:13 13:13 13:13 MCV MCH MCHC RDW Plt Count MPV Immature Gran % (Auto) Neut % (Auto) Lymph % (Auto) [place] % (Auto) Eos % (Auto) Baso % (Auto) Lymph # (Auto) [place] # (Auto) Eos # (Auto) Baso # (Auto) Abs Immat Gran (auto) Absolute Neuts (auto) Absolute Nucleated RBC Nucleated RBC % (auto) PT 15.0 H INR 1.3 H APTT 26.7 Anion Gap 15 Estim Creat Clear Calc 86.4 Estimated GFR > 60 Random Glucose 163 H D Calcium 7.8 L D Total Bilirubin 0.7 AST 28 D ALT 24 Alkaline Phosphatase 220 H D Ammonia 41 Total Protein 4.8 L D Albumin 2.2 L D COVID-19 ([facility]) COVID-19 Clin Com Blood Type Antibody Screen Crossmatch 07/06/21 07/06/21 07/06/21 13:18 13:28 13:29 MCV 97.8 MCH 31.6 MCHC 32.3 RDW 16.9 H Plt Count 82 L MPV 11.3 Immature Gran % (Auto) 0.4 Neut % (Auto) 59.5 Lymph % (Auto) 26.0 [place] % (Auto) 11.4 H Eos % (Auto) 2.0 Baso % (Auto) 0.7 Lymph # (Auto) 1.2 [place] # (Auto) 0.5 Eos # (Auto) 0.1 Baso # (Auto) 0.0 Abs Immat Gran (auto) 0.02 Absolute Neuts (auto) 2.7 Absolute Nucleated RBC 0.000 Nucleated RBC % (auto) 0.0 PT INR APTT Cancelled Anion Gap Estim Creat Clear Calc Estimated GFR Random Glucose Calcium Total Bilirubin AST ALT Alkaline Phosphatase Ammonia Total Protein Albumin COVID-19 ([facility]) COVID-[facility]) Com Blood Type O Positive Antibody Screen NEGATIVE Crossmatch See Detail 07/06/21 15:15 MCV MCH MCHC RDW Plt Count MPV Immature Gran % (Auto) Neut % (Auto) Lymph % (Auto) [place] % (Auto) Eos % (Auto) Baso % (Auto) Lymph # (Auto) [place] # (Auto) Eos # (Auto) Baso # (Auto) Abs Immat Gran (auto) Absolute Neuts (auto) Absolute Nucleated RBC Nucleated RBC % (auto) PT INR APTT Anion Gap Estim Creat Clear Calc Estimated GFR Random Glucose Calcium Total Bilirubin AST ALT Alkaline Phosphatase Ammonia Total Protein Albumin COVID-19 ([facility]) Negative COVID-[facility] Com See Note Blood Type Antibody Screen Crossmatch Assessment and Plan (1) Acute upper GI bleeding: Status: Acute (2) Portal vein thrombosis: Status: Acute (3) Portal hypertension: Status: Acute (4) Cholangiocarcinoma: Status: Acute (5) Ascites: Status: Acute (6) LFT elevation: Status: Acute (7) Anemia: Status: Acute (8) Hyperkalemia: Status: Acute (9) Intrahepatic bile duct dilation: Status: Acute (10) Impaired glucose tolerance: Status: Acute (11) Hypertension: Qualifiers: Hypertension type: essential hypertension Qualified Code(s): I10 - Essential (primary) hypertension Status: Acute (12) Hypotension: Status: Acute The plan is to make sure he is volume resuscitated will maintain the octreotide for now to reduce pressure in the portal venous system keep him NPO and is going to have an emergent upper endoscopy for potential source control and will follow serial hemoglobin
[2021-07-06] MEDS: Octreotide Acetate 500 MCG in 0.9 % Sodium Chloride 500 ML 50.1 MCG IVCONT (16:48)
[2021-07-06] MEDS: Phytonadione (Vit K1) 10 MG in 0.9 % Sodium Chloride 50 ML 51 MG IV (16:48)
--- NOTE | 2021-07-06 17:06 | P.CONAN_ITS ---
[facility] Active Problems Active Problems: All Active Problems (Updated 07/06/21 @ 16:29 by Rubi mckenna MD) Hypotension (Acute) Portal hypertension (Acute) Acute upper GI bleeding (Acute) Portal vein thrombosis (Acute) Ascites (Acute) Abdominal distension (Acute) Generalized anxiety disorder (Acute) Cholangiocarcinoma (Acute) Intrahepatic bile duct dilation (Acute) Hyperkalemia (Acute) Anemia (Acute) LFT elevation (Acute) Hypercholesterolemia (Acute) Hypertension (Acute) Anxiety (Acute) Impaired glucose tolerance (Acute) Past Medical History Medical History Anxiety Gastric ulcer Hypercholesterolemia Hypertension Impaired glucose tolerance Portal hypertension Functional capacity: independent ambulation Family History Family History Father No problems noted. Mother Stroke Hypertension Sister Breast cancer Family history of problems with anesthesia: No Surgical History Surgical History No pertinent past surgical history History of Problems with Anesthesia: No Social History Social History Housing: House Alcohol intake: current Alcohol intake frequency: a few times a week Alcohol type: beer Patient Tobacco Use Status: Former Tobacco user Tobacco use type: Cigarette e-Cigarette/Vaping Use: Never Used Second Hand Smoke Exposure: No Advance Directives: No Advance Directives Information Provided: Yes service: No Current occupational status: retired Meds Allergies Allergy/AdvReac Type Severity Reaction Status Date / Time atorvastatin Allergy Mild insomnia Verified 06/24/21 14:23 lisinopril Allergy Mild cough Verified 06/24/21 14:23 losartan Allergy Mild increase Verified 06/24/21 14:23 creatinine Active Medications: Current Medications Octreotide Acetate 500 mcg/ (Sodium Chloride) 501 mls @ 50.1 mls/hr IVCONT .Q1 0H [facility] Last Admin: 07/06/21 16:48 Dose: 50 mcg/hr, 50.1 mls/hr Documented by: Sodium Chloride (Ns) 1,000 mls @ 100 mls/hr IVCONT .Q10H [facility] Pharmacy Consult (Consult Rx Perform Med Rec) 1 each MISCELLANE ONCE PRN PRN Reason: Consult order Home Medications Medication Instructions Recorded Confirmed Last Taken Type nystatin 100,000 unit/mL oral 5 ml PO QID 07/06/21 07/06/21 Unknown History suspension pantoprazole 40 mg tablet,delayed 1 tab PO BID 07/06/21 07/06/21 Unknown History release sucralfate 1 gram tablet 1 tab PO QID 07/06/21 07/06/21 Unknown History Exam Exam Date and Time: July 06, 2021 1706 Height,Weight and Vital Signs: Height 5 ft 8 in Weight 72.1 kg Last Vital Signs Temp 97.5 F 07/06/21 16:37 Pulse 73 07/06/21 16:37 Resp 21 H 07/06/21 16:37 BP 103/77 07/06/21 16:37 Pulse Ox 100 07/06/21 16:00 Oxygen Flow Rate 3 07/06/21 13:04 Pertinent Lab Results Pertinent Lab Results: Laboratory Tests 07/06/21 07/06/21 07/06/21 13:13 13:13 13:13 WBC RBC Hgb Hct MCV MCH MCHC RDW Plt Count MPV Immature Gran % (Auto) Neut % (Auto) Lymph % (Auto) [place] % (Auto) Eos % (Auto) Baso % (Auto) Lymph # (Auto) [place] # (Auto) Eos # (Auto) Baso # (Auto) Abs Immat Gran (auto) Absolute Neuts (auto) Absolute Nucleated RBC Nucleated RBC % (auto) PT 15.0 H INR 1.3 H APTT 26.7 Sodium 136 Potassium 3.5 Chloride 106 Carbon Dioxide 19 L Anion Gap 15 BUN 13 Creatinine 0.78 Estim Creat Clear Calc 86.4 Estimated GFR > 60 Random Glucose 163 H D Calcium 7.8 L D Total Bilirubin 0.7 AST 28 D ALT 24 Alkaline Phosphatase 220 H D Ammonia 41 Total Protein 4.8 L D Albumin 2.2 L D COVID-19 ([facility]) COVID-19 Clin Com Blood Type Antibody Screen Crossmatch 07/06/21 07/06/21 07/06/21 13:18 13:28 13:29 WBC 4.6 L RBC 2.28 L D Hgb 7.2 L D Hct 22.3 L D MCV 97.8 MCH 31.6 MCHC 32.3 RDW 16.9 H Plt Count 82 L MPV 11.3 Immature Gran % (Auto) 0.4 Neut % (Auto) 59.5 Lymph % (Auto) 26.0 [place] % (Auto) 11.4 H Eos % (Auto) 2.0 Baso % (Auto) 0.7 Lymph # (Auto) 1.2 [place] # (Auto) 0.5 Eos # (Auto) 0.1 Baso # (Auto) 0.0 Abs Immat Gran (auto) 0.02 Absolute Neuts (auto) 2.7 Absolute Nucleated RBC 0.000 Nucleated RBC % (auto) 0.0 PT INR APTT Cancelled Sodium Potassium Chloride Carbon Dioxide Anion Gap BUN Creatinine Estim Creat Clear Calc Estimated GFR Random Glucose Calcium Total Bilirubin AST ALT Alkaline Phosphatase Ammonia Total Protein Albumin COVID-19 ([facility]) COVID-19 Clin Com Blood Type O Positive Antibody Screen NEGATIVE Crossmatch See Detail 07/06/21 15:15 WBC RBC Hgb Hct MCV MCH MCHC RDW Plt Count MPV Immature Gran % (Auto) Neut % (Auto) Lymph % (Auto) [place] % (Auto) Eos % (Auto) Baso % (Auto) Lymph # (Auto) [place] # (Auto) Eos # (Auto) Baso # (Auto) Abs Immat Gran (auto) Absolute Neuts (auto) Absolute Nucleated RBC Nucleated RBC % (auto) PT INR APTT Sodium Potassium Chloride Carbon Dioxide Anion Gap BUN Creatinine Estim Creat Clear Calc Estimated GFR Random Glucose Calcium Total Bilirubin AST ALT Alkaline Phosphatase Ammonia Total Protein Albumin COVID-19 ([facility]) Negative COVID-19 Clin Com See Note Blood Type Antibody Screen Crossmatch Airway Mallampati Class: II TM Dist: >3cm Neck ROM: Full Heart: RRR Lungs: CTA Other: firm abdomen - ascites . Paracentesis was scheduled for tomorrow Assessment and Plan Final Anesthetic Review Family History of Problems with Anesthesia: No History of Problems with Anesthesia: No ASA Class: IV and Emergency Final Preanesthetic Review: Meds/Allgs Chart Reviewed, Consent Obtained/Reviewed and Anes Risks/Benef Reviewed Patient Risk: High Procedure Risk: Intermediate Anesthetic Plan Anesthetic Plan: GA Disposition: Inp. Admit - ICU
[2021-07-06] MEDS: 0.9 % Sodium Chloride 1,000 ML 100 ML IVCONT (17:12)
[2021-07-06] MEDS: cefTRIAXone sodium 1 GM in 0.9 % Sodium Chloride 50 ML IV (17:16)
--- NOTE | 2021-07-06 20:12 | P.EN_ITS ---
Event Note Date of Service: 07/06/21 Event Note: EGD with Sclerotherapy with Epi 1:10,000---Full note dictated Findings: 1. Actively bleeding ulcer superior to the pylorus in the gastric antrum with brisk pulsatile spurting of arterial blood. This active bleeding persisted despite mutiple injections and spraying of Epi, thus limiting visualization of the ulcer base. I could not visualize a discrete vessel to cauterize or clip. 2. Approx 2cm ulcer crater in duodenal bulb with some suture material and oozing. This was controlled with Epi. A discrete vessel was not visualized. 3. Small nonbleeding areas of ulceration in the distal esophagus c/w his previous banding, but no sign of bleeding nor visible vessel. 4. Large clots and fresh blood in the proximal stomach. Imp: Gastric ulcer with refractory and active bleeding Plan: Dr. Vargas and Dr. Gray were present in the OR. The plan is to attempt to transfer him to [facility] for an attempt at an IR procedure. However, if they can't take him then he will need surgery here. The family is aware of all of this and the gravity of the situation, including his poor prognosis. They were agreeable to this plan.
--- NOTE | 2021-07-06 20:23 | PM.OP ---
Brief Operative Note Date of Service: 07/06/21 Pre-op diagnosis: UGI bleed Post-op diagnosis: other (Gastric and Duodenal ulcers) Procedure: EGD with sclerotherapy with Epi 1:10,000 Surgeon: Terry Almnaza Anesthesia: GETA Was an Genetic Counselor used for this Procedure?: No Estimated blood loss (mL): 500 Pathology: none sent Condition: critical Disposition: other
--- NOTE | 2021-07-06 20:54 | P.DS_ITS ---
DS: Providers Provider Date of Service: 07/06/21 Date of admission: 07/06/21 15:32 Date of discharge: 07/06/21 Primary care physician: Unknown Physician Admitting clinician: Rubi Gray Attending physician on admission: Rubi Gray Consults: 07/06/21 17:03 Consult to Gastroenterology Stat Consulting Provider: Terry Almanza Reason for consultation: GI bleed Has provider been notified: Yes Attending physician on discharge: Rubi Gray Discharging clinician: Rubi Gray DS: Transfer Hospital Acceptance Reason for Transfer: Need for interventional radiology Name of Facility: [facility] Accepting Provider: Dr. Brady in the medical ICU DS: Diagnosis Discharge Diagnosis (1) Acute upper GI bleeding: Status: Acute (2) Portal vein thrombosis: Status: Acute (3) Portal hypertension: Status: Acute (4) Cholangiocarcinoma: Status: Acute (5) Ascites: Status: Acute (6) LFT elevation: Status: Acute (7) Anemia: Status: Acute (8) Hyperkalemia: Status: Acute (9) Intrahepatic bile duct dilation: Status: Acute (10) Impaired glucose tolerance: Status: Acute (11) Hypertension: Status: Acute (12) Hypotension: Status: Acute DS: Summary Hospital Course Hospital Course: Presented after massive hematemesis hypotensive aggressive massive transfusion 6 units of red cells 1 of platelets and 2 of fresh frozen plasma with a triple- lumen line in the right common femoral vein as well as several large peripheral lines and after volume and blood repletion was able to come off phenylephrine and endoscopy attempt was made between 2 and 2-1/2 hours unable to control bleeding which was from multiple sites from the pre-pyloric area to the duodenal bulb He has a history of cholangiocarcinoma and he had a left lobe of his liver resected back in September of 2020 and he had a hepatic co jejunostomy performed and subsequently developed portal vein thrombosis and complications consisting of ascites and varices which are both esophageal and gastric and he recently bled from those with banding procedures done and control but this time it does not seem to be variceal Time spent discussing smoking cessation with patient: 3 to 10 minutes Status at Discharge Cognitive/behavioral status at discharge: Intubated and sedated Time Spent with Patient Time attestation: Total time spent providing and/or coordinating discharge services: Discharge coordination time: Greater than 30 minutes Quality: Stroke Does the patient have a stroke diagnosis?: No Physical Exam Vital Signs: Vital Signs: Last Vital Signs Temp 97.5 F 07/06/21 16:37 Pulse 73 07/06/21 16:37 Resp 21 H 07/06/21 16:37 BP 103/77 07/06/21 16:37 Pulse Ox 100 07/06/21 16:00 Oxygen Flow Rate 3 07/06/21 13:04 BMI result Body Mass Index 24.1 Current pressure is 120 systolic sinus tachycardia at 1:10 a.m. afebrile oxygen saturation in the mid 90s and of course he is he is intubated and sedated Bedside echocardiogram shows normal LV and RV function both hyperdynamic with no primary valve or pericardial disease Lungs clear Skin color warm well perfused no acrocyanosis DS: Data Data Completed and Pending Labs on day of discharge: Laboratory Results - last 24 hr 07/06/21 07/06/21 07/06/21 13:13 13:13 13:13 WBC RBC Hgb Hct MCV MCH MCHC RDW Plt Count MPV Immature Gran % (Auto) Neut % (Auto) Lymph % (Auto) [place] % (Auto) Eos % (Auto) Baso % (Auto) Lymph # (Auto) [place] # (Auto) Eos # (Auto) Baso # (Auto) Abs Immat Gran (auto) Absolute Neuts (auto) Absolute Nucleated RBC Nucleated RBC % (auto) PT 15.0 H INR 1.3 H APTT 26.7 Sodium 136 Potassium 3.5 Chloride 106 Carbon Dioxide 19 L Anion Gap 15 BUN 13 Creatinine 0.78 Estim Creat Clear Calc 86.4 Estimated GFR > 60 Random Glucose 163 H D Calcium 7.8 L D Total Bilirubin 0.7 AST 28 D ALT 24 Alkaline Phosphatase 220 H D Ammonia 41 Total Protein 4.8 L D Albumin 2.2 L D COVID-19 ([facility]) COVID-19 Clin Com Blood Type Antibody Screen Crossmatch 07/06/21 07/06/21 07/06/21 13:18 13:28 13:29 WBC 4.6 L RBC 2.28 L D Hgb 7.2 L D Hct 22.3 L D MCV 97.8 MCH 31.6 MCHC 32.3 RDW 16.9 H Plt Count 82 L MPV 11.3 Immature Gran % (Auto) 0.4 Neut % (Auto) 59.5 Lymph % (Auto) 26.0 [place] % (Auto) 11.4 H Eos % (Auto) 2.0 Baso % (Auto) 0.7 Lymph # (Auto) 1.2 [place] # (Auto) 0.5 Eos # (Auto) 0.1 Baso # (Auto) 0.0 Abs Immat Gran (auto) 0.02 Absolute Neuts (auto) 2.7 Absolute Nucleated RBC 0.000 Nucleated RBC % (auto) 0.0 PT INR APTT Cancelled Sodium Potassium Chloride Carbon Dioxide Anion Gap BUN Creatinine Estim Creat Clear Calc Estimated GFR Random Glucose Calcium Total Bilirubin AST ALT Alkaline Phosphatase Ammonia Total Protein Albumin COVID-19 ([facility]) COVID-19 Clin Com Blood Type O Positive Antibody Screen NEGATIVE Crossmatch See Detail 07/06/21 15:15 WBC RBC Hgb Hct MCV MCH MCHC RDW Plt Count MPV Immature Gran % (Auto) Neut % (Auto) Lymph % (Auto) [place] % (Auto) Eos % (Auto) Baso % (Auto) Lymph # (Auto) [place] # (Auto) Eos # (Auto) Baso # (Auto) Abs Immat Gran (auto) Absolute Neuts (auto) Absolute Nucleated RBC Nucleated RBC % (auto) PT INR APTT Sodium Potassium Chloride Carbon Dioxide Anion Gap BUN Creatinine Estim Creat Clear Calc Estimated GFR Random Glucose Calcium Total Bilirubin AST ALT Alkaline Phosphatase Ammonia Total Protein Albumin COVID-19 ([facility]) Negative COVID-19 [facility] Com See Note Blood Type Antibody Screen Crossmatch Discharge Plan Discharge Anticipated Discharge Date/Time: 07/06/21 20:51 Patient Disposition: Xfer Acute Care Hospital Discharge Diagnosis: Upper GI bleed Referrals: Physician,Anaya J [Primary Care Provider] - 1 Week Discharge Medications: No Action spironolactone [Aldactone] 25 mg tablet 25 mg PO DAILY 30 Days Qty: 30 RF: 0 nystatin 100,000 unit/mL suspension 5 ml PO QID RF: 0 sucralfate 1 gram tablet 1 tab PO QID RF: 0 pantoprazole 40 mg tablet,delayed release (DR/EC) 1 tab PO BID RF: 0 Discharge Orders: Discharge Order (Routine); Ordered 07/06/21 Ordered By: Rubi Gray Diet: other Activity on Discharge: As tolerated Stand Alone Forms: Patient Portal Discharge page Care Plan Goals: Interventional radiology at [facility] Concerns: Continued bleeding Plan of Treatment: Volume repletion and Interventional Radiology at [facility] Assessment: Patient stable with volume and blood repletion at this point with blood pressure 120 sinus tachycardia at 1:10 a.m.
--- NOTE | 2021-07-06 21:06 | P.CONGS_ITS ---
History of Present Illness Consult details Consult date: 07/06/21 Narrative: 70M here in the OR/ICU for upper GI bleed. 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 He then underwent adjuvant chemotherapy and radiation which was completed in May 2021. He was brought to [facility] last May 2021 for coffee ground emesis. No EGD was done then. He had large amounts of hematamesis last week and was brought to [facility]. He ahd an EGD which showed varices in the EG junction, and a nonbleeding circumferential ulcer. The varices were banded at that time. He was discharged home but had another episode of hematemesis this afternoon so he was brought here. He was broguth to the OR for upper GI endoscopy, and I was called to evaluate the patient during endoscopy. The patient also had portal vein thrombosis after surgery. He had developed asci burke from portal hypertension and undewent paracentesis last month. He is not currently on anticoagulation. Review of Systems Review of Systems: pt currently under general anesthesia [facility] Past Medical History Medical History Anxiety Gastric ulcer Hypercholesterolemia Hypertension Impaired glucose tolerance Portal hypertension Functional capacity: independent ambulation Family History Family History Father No problems noted. Mother Stroke Hypertension Sister Breast cancer Surgical History Surgical History No pertinent past surgical history Social History Social History Housing: House Alcohol intake: current Alcohol intake frequency: a few times a week Alcohol type: beer Patient Tobacco Use Status: Former Tobacco user Tobacco use type: Cigarette e-Cigarette/Vaping Use: Never Used Second Hand Smoke Exposure: No service: No Current occupational status: retired Meds Allergies Allergy/AdvReac Type Severity Reaction Status Date / Time atorvastatin Allergy Mild insomnia Verified 06/24/21 14:23 lisinopril Allergy Mild cough Verified 06/24/21 14:23 losartan Allergy Mild increase Verified 06/24/21 14:23 creatinine Active Medications: Current Medications Octreotide Acetate 500 mcg/ (Sodium Chloride) 501 mls @ 50.1 mls/hr IVCONT .Q10H [facility] Last Admin: 07/06/21 16:48 Dose: 50 mcg/hr, 50.1 mls/hr Documented by: Sodium Chloride (Ns) 1,000 mls @ 100 mls/hr IVCONT .Q10H [facility] Last Admin: 07/06/21 17:12 Dose: 100 mls/hr Documented by: Vasopressin 20 unit/ Sodium (Chloride) 101 mls @ 12.12 mls/hr IVCONT .Q8H20M [facility] Pharmacy Consult (Consult Rx Perform Med Rec) 1 each MISCELLANE ONCE PRN PRN Reason: Consult order Home Medications Medication Instructions Recorded Confirmed Last Taken Type nystatin 100,000 unit/mL oral 5 ml PO QID 07/06/21 07/06/21 Unknown History suspension pantoprazole 40 mg tablet,delayed 1 tab PO BID 07/06/21 07/06/21 Unknown History release sucralfate 1 gram tablet 1 tab PO QID 07/06/21 07/06/21 Unknown History Physical Exam Vital Signs: Vital Signs: Last Vital Signs Temp 97.5 F 07/06/21 16:37 Pulse 73 07/06/21 16:37 Resp 21 H 07/06/21 16:37 BP 103/77 07/06/21 16:37 Pulse Ox 100 07/06/21 16:00 Oxygen Flow Rate 3 07/06/21 13:04 BMI result Body Mass Index 24.1 Const: Other: on ventilator, undert anesthesia Resp: Other: on ventilator, intubated Cardio: Rate: tachycardic GI: Palpation (GI): Soft to palpation, no guarding and not rigid Results Labs Result diagrams: 07/06/21 21:15 07/06/21 13:13 Labs: Abnormal lab results 07/06/21 07/06/21 07/06/21 Range/Units 13:13 13:13 13:18 WBC 4.6 L (4.8-10.8) X10*3/uL RBC 2.28 L D (4.60-5.80) X10*6/uL Hgb 7.2 L D (14.0-18.0) g/dl Hct 22.3 L D (42.0-52.0) % RDW 16.9 H (11.0-16.0) % Plt Count 82 L (160-400) X10*3/uL Wetzel % (Auto) 11.4 H (2-11) % PT 15.0 H (9.9-13.0) SEC INR 1.3 H (0.9-1.1) Carbon Dioxide 19 L (22-29) mmol/L Random Glucose 163 H D (60-115) mg/dL Calcium 7.8 L D (8.4-10.2) mg/dL Alkaline Phosphatase 220 H D (39-117) U/L Total Protein 4.8 L D (6.5-8.0) g/dL Albumin 2.2 L D (3.5-5.0) g/dL Crossmatch 07/06/21 Range/Units 13:28 WBC (4.8-10.8) X10*3/uL RBC (4.60-5.80) X10*6/uL Hgb (14.0-18.0) g/dl Hct (42.0-52.0) % RDW (11.0-16.0) % Plt Count (160-400) X10*3/uL Wetzel % (Auto) (2-11) % PT (9.9-13.0) SEC INR (0.9-1.1) Carbon Dioxide (22-29) mmol/L Random Glucose (60-115) mg/dL Calcium (8.4-10.2) mg/dL Alkaline Phosphatase (39-117) U/L Total Protein (6.5-8.0) g/dL Albumin (3.5-5.0) g/dL Crossmatch See Detail Short CBC 07/06/21 Range/Units 13:18 WBC 4.6 L (4.8-10.8) X10*3/uL Hgb 7.2 L D (14.0-18.0) g/dl Hct 22.3 L D (42.0-52.0) % Plt Count 82 L (160-400) X10*3/uL BMP 07/06/21 13:13 Sodium 136 Potassium 3.5 Chloride 106 Carbon Dioxide 19 L BUN 13 Creatinine 0.78 Calcium 7.8 L D Liver Function 07/06/21 Range/Units 13:13 Total Bilirubin 0.7 (0.0-1.0) mg/dL AST 28 D (5-37) U/L ALT 24 (0-40) U/L Alkaline Phosphatase 220 H D (39-117) U/L Albumin 2.2 L D (3.5-5.0) g/dL All other labs normal. Assessment and Plan (1) Acute upper GI bleeding: Status: Acute The patient was undergoing endoscopy when I came to evaluate him. i was able to observe the procedure. There seemed to be multiple areas of bleeding - prepyloic area and duodenal bulb, although definite localization was difficult in view of presence of large amounts of clots. Multiple applications of epinephrine was done on multiple areas. However, there seemed to be some persistent bleeding each time. The patient had been trnasfused 6 units of pRBCs and FFPs and platelets since admission, and was hemodynamically stable in the OR. However, it appeared that hemostasis did not appear adequate as oozing was al ways noticed. I therefore had a second OR crew come in to setup another room for laparotomy. Multiple discussions were then done with the photo checker, endoscopist as well as the family. At some point, in view of the patient's recent surgery, portal HTN, as well as multiple possible sources of the bleeding, we called [facility] interventional radiology and medical ICU to attempt localization and hopefully control of the bleeding while avoiding laparotomy if possible. The family had also indicated t hat they preferred [facility]. Both [facility] and [facility] had accepted the patient for transfer. The patient was hemodynamically stable throughout this time. The family was periodically updated while transfer arrangements were being done. Procedures Date of Service Date of Service: 07/06/21
[2021-07-06 21:21] LABS: Basophils Absolute Auto 0.1 X10*3/uL (0.0-0.2); Basophils Percent Auto 0.3 % (0-2); Eosinophils Percent Auto 0.1 % (0-4); Hematocrit 34.8 % (42.0-52.0); Hemoglobin 11.3 g/dl (14.0-18.0); Imm Gran Abs Auto 0.84 X10*3/uL (0.00-0.03); Imm Gran Pct Auto 2.7 % (0.0-0.4); Lymphocytes Absolute Auto 1.2 X10*3/uL (1.2-4.9); MANUAL DIFF FLAG SCAN; Mean Corpuscular HGB Conc 32.5 g/dl (31.0-36.0); Mean Corpuscular Volume 95.6 fL (80.0-98.0); Mean Platelet Volume 11.1 fL (9.4-12.4); Monocytes Absolute Auto 1.8 X10*3/uL (0.1-1.2); Monocytes Percent Auto 5.9 % (2-11); Neutrophils Absolute Auto 26.7 x10*3/uL (2.0-8.3); Red Blood Count 3.64 X10*6/uL (4.60-5.80); Red Cell Distribution Width 14.9 % (11.0-16.0); SCAN SMEAR FLAG 1
[2021-07-06 21:36] LABS: Platelet Count 83 X10*3/uL (160-400)
[2021-07-06 21:44] LABS: White Blood Count 30.7 X10*3/uL (4.8-10.8)
[2021-07-06 21:45] LABS: SLIDE REVIEW VERIFIED
--- NOTE | 2021-07-06 21:57 | CONS_ITS ---
DATE OF SERVICE: 07/06/2021 REASON FOR CONSULTATION: Hematemesis. HISTORY OF PRESENT ILLNESS: This has been obtained from the patient, his family, and the medical record. The patient is a 70-year-old male with the diagnosis of a cholangiocarcinoma in September of this year. He initially underwent ERCP with biliary stent placement at [facility] This was then followed by surgery with a left hepatic lobectomy and a caudate lobectomy, a lymphadenectomy, and a Elias-en-Y hepaticojejunostomy. At the time of surgery, the pathology revealed some small blood vessel invasion and at least 2 lymph nodes that were positive for tumor. He did well thereafter and then underwent chemotherapy and radiation treatment through the [facility]. This was completed at some point either over the summer or by April. Since the beginning of June, he has been having some problems. There was the description of some coffee-ground emesis, for which he went to [facility] but did not undergo endoscopy. He also developed the onset of ascites and the diagnosis of a portal vein thrombosis. He underwent a paracentesis on June 24 here at [place] with the removal of 3.9 L of fluid. I do not see any pathology report from that. Shortly after the paracentesis, he went to [facility] where he received 1 dose of Lovenox for the portal vein thrombosis, but then promptly had an upper GI bleed. I do not have the reports as yet but the upper endoscopy apparently revealed esophageal varices, for which he underwent banding. There was also report of a gastric ulcer, but it is not clear whether that was bleeding. Again, we are waiting for the records to come up from [facility]. In any event, he was discharged from [facility] just several days ago on sucralfate and omeprazole. However, today he developed recurrent hematemesis and some melena. He came to the ER. He has been hemodynamically stable. He is currently receiving 2 units of blood. He has had no further active bleeding in the ER. He was started on IV Sandostatin and IV Protonix infusion. He also received some vitamin K for slightly elevated INR. There is no previous history of GI bleeding nor any underlying liver disease. He had been on a low-dose aspirin, but has not been using that for at least the time since he developed GI bleeding at [facility]. He does not use any NSAIDs. He does not smoke nor use any alcohol. MEDICATIONS: His medications at home included pantoprazole, spironolactone, sucralfate, and nystatin. PAST MEDICAL HISTORY: Cholangiocarcinoma with surgery and treatment as above. Hypertension. There is no reported history of MO, diabetes, stroke, nor lung disease. SOCIAL HISTORY: He is . He does not smoke or use any alcohol. FAMILY HISTORY: Noncontributory. REVIEW OF SYSTEMS: CONSTITUTIONAL: He has been feeling poorly at home with decreased appetite and weakness. CARDIAC: No chest pain. PULMONARY: No cough or no hemoptysis. GI: As above. PHYSICAL EXAMINATION: GENERAL: The patient is a chronically ill appearing male but in no distress. SKIN: Warm and dry. He is pale. Anicteric sclerae. NECK: Supple. No palpable lymphadenopathy. CHEST: Clear. CARDIAC: Normal S1 and S2. ABDOMEN: Soft but distended with ascites. There is no palpable mass or tenderness. EXTREMITIES: Without edema. LABORATORY DATA: His CBC on arrival revealed a hemoglobin of 7.2, white blood cell count 4.6, and a platelet count of 82,000. His PT was 15.0 with INR 1.3. Chemistries revealed normal electrolytes, BUN 13, creatinine 0.8, calcium 7.8, total bilirubin 0.7, AST 28, ALT 24, alkaline phosphatase 220, albumin 2.2. IMPRESSION: The patient is a 70-year-old male status post partial hepatectomy, chemotherapy, and radiation treatment for cholangiocarcinoma between October and April of this year. This has been complicated by the recent development of a portal vein thrombosis, ascites, and GI bleeding in relation to what sounds like esophageal varices and possible gastric ulcer. He now presents with recurrent upper GI bleeding. At this point, I would recommend upper endoscopy for further evaluation and potential treatment with either further banding or other modalities. Full consent was obtained from the patient and his family for the endoscopy including risks of bleeding and perforation. We did review that at this point he is obviously quite ill with the underlying cancer and other complications of that and is high risk for the procedure, and prognosis is guarded. I will continue the IV Protonix and IV Sandostatin, as well as transfusions as needed. He has already been evaluated by the ICU doctor for admission there. We did review that he will need a followup paracentesis as well for comfort at some point during the hospitalization. We did discuss the portal vein thrombosis, but obviously this cannot be treated with anticoagulation at this point. This has all been discussed with the patient and his family in detail and they are comfortable with the plan. Thank you for the consultation. MD HERMILO Hernandez/ERNESTO / [id number] MTDD
--- NOTE | 2021-07-07 01:43 | OP_ITS ---
SURGEON: Terry Almanza MD INDICATIONS: The patient presents for evaluation of upper GI bleeding. Full consent has been obtained from the patient and his family, including risks of bleeding, perforation, aspiration, and potential need for surgical intervention. PREOPERATIVE DIAGNOSIS: Upper gastrointestinal bleeding. POSTOPERATIVE DIAGNOSIS: PROCEDURE PERFORMED: Esophagogastroduodenoscopy with sclerotherapy with epinephrine in a dilution of 1:10,000. ESTIMATED BLOOD LOSS: COMPLICATIONS: ANESTHESIA: Medication used, general anesthesia, glucagon 1 mg IV x1. He also received numerous doses of epinephrine in a dilution of 1:10,000 used for sclerotherapy. ASSISTANTS: SPECIMENS: POSTOPERATIVE DIAGNOSES: Upper gastrointestinal bleeding, actively bleeding gastric ulcer, duodenal bulb ulcer, nonbleeding ulcers in the esophagus in relation to recent variceal banding. DESCRIPTION OF PROCEDURE: The patient was in the supine position. The Olympus video gastroscope was passed in the posterior oropharynx and upper esophagus under direct vision. The scope was passed slowly to the distal esophagus. The gastroesophageal junction appeared at 40 cm. In the distal 2 or 3 cm of the esophagus were at least 2 or 3 small, less than 10 mm areas of ulceration but without any sign of visible vessel nor bleeding, consistent with the banding done about 10 days ago. I did not see any definitive residual varices. The scope entered into the stomach, there was a large amount of clot and fresh blood in the proximal stomach obscuring our view. The scope was advanced to the pylorus. The pre-pyloric antrum was notable for pulsatile bleeding coming from the prepyloric antrum. I was able to cannulate the duodenum to the descending portion. The second and third portions of duodenum appeared normal. The duodenal bulb had a large amount of clot, which was eventually irrigated and moved away. There was an approximately 2 cm ulcer crater with what appeared to be a suture material within the base of the ulcer. There was some oozing coming from that, but no sign of any active bleeding. I did not visualize any definitive vessel. I did inject multiple doses of epi into and around this area with ultimately good hemostasis. The scope was withdrawn back in the stomach. The remainder of the procedure, which was quite lengthy was spent trying to get control of the bleeding from the gastric ulcer. At times, I was able to see an ulcer crater just above the pylorus, but with the continued bleeding I could not visualize the discrete ulcer. I injected multiple doses of epinephrine as well as spraying the ulcer with epinephrine, but this only led to very transient stoppage of the bleeding. Again, I could not visualize the discrete ulcer nor vessel on which to perform cauterization or place a clip. I did retroflex but the proximal stomach was obscured by a large amount of fresh blood and clot. The scope was straightened. Again, I did spend a very long time trying to get control of the ulcer given his very high surgical risk in light of his portal vein thrombosis, ascites, and underlying history of the cholangiocarcinoma. Unfortunately, I could not stop the bleeding and at that point, the scope was withdrawn from the patient. Imp: 1. Actively bleeding gastric ulcer, refractory to endoscopic therapy 2. Duodenal bulb ulcer 3. Nonbleeding ulcers on sites of recent variceal banding. Plan: His care was turned over to Dr. Vargas, as well as Dr. Gray. At the time of this dictation, the plan is to potentially transfer him to [facility] if they can accept him and see if an interventional radiology procedure can be performed with angiography to stop the bleeding in that manner. If they cannot accept him, then he will go for surgery here despite the very high risk. This has all been discussed with the patient's and 2 daughters in detail, including the gravity of the situation and the poor prognosis. At this point, they are comfortable with the plan. MD HERMILO Hernandez/ERNESTO / [id number] MTDJazzy
--- NOTE | 2021-07-10 06:04 | MHC.CDI.RETR ---
Retrospective Query PHYSICIAN'S DOCUMENTATION REQUEST Date of Query: 07/10/21 0604 Patient Name: Osvaldo Reza Admit Date: 07/06/21 Dear Doctor, A review of the medical record indicates additional documentation may be needed. Please review below and update the documentation accordingly. Clinical Indicators: Risk Factors/Clinical Indicators/Treatments ED: 07/06 - Upper GI bleed, vomiting clots of blood, shortness of breath, fatigue, tachycardic, tachypneic. Transfused 2 units PRBC. Actively bleeding gastric ulcer. HGB 7.2 HCT 22.3 Transfused: 6 units of red cells, 1 unit platelets, 2 FFP. Based on the above, could you clarify in the Progress Notes which of the following is the most likely type of anemia you are evaluating, treating, and/or monitoring? Acute blood loss anemia Acute blood loss anemia with baseline chronic anemia Acute on chronic iron deficiency anemia due to blood loss Other ? please specify Unable to determine Use of terms such as suspected, likely, concern for, or probable (associated with a specific diagnosis that is being evaluated, monitored, or treated as if it exists) are acceptable and can be coded in the inpatient setting, when documented at the time of discharge. Thank you, Deanna Martin [facility], CDIS Extension: [phone] Please use your independent medical judgment in providing your response. THIS QUERY IS PART OF THE PERMANENT MEDICAL RECORD
== END 2021-07-06 20:52 | disposition short-term general hospital (02) | DRG 377 ==
LOC: HO.ED 14:22 → HO.EDOVER 20:53
PROVIDERS: Internal Medicine; Physician Assistant; Admitting Provider Internal Medicine Cardiovascular Disease; Emergency Provider Emergency Medicine; Visit Provider Internal Medicine Cardiovascular Disease
PROC: 3E0G8TZ Introduction of Destructive Agent into Upper GI, Via Natural or Artificial Opening Endoscopic (ICD-10-PCS; principal; 2021-07-06 16:30)
DX: K25.4 Chronic or unspecified gastric ulcer with hemorrhage (principal); I81 Portal vein thrombosis; K76.6 Portal hypertension; C22.1 Intrahepatic bile duct carcinoma; D62 Acute posthemorrhagic anemia; K26.4 Chronic or unspecified duodenal ulcer with hemorrhage; I10 Essential (primary) hypertension; I95.9 Hypotension, unspecified; E87.5 Hyperkalemia; Z20.822 Contact with and (suspected) exposure to COVID-19; Z87.891 Personal history of nicotine dependence; Z79.899 Other long term (current) drug therapy
CPT/HCPCS: 36415; 36430; 80053; 82140; 85025; 85610; 85730; 86850; 86900; 86901; 86923; 87635; 93005; 96361; 96374; 96375; 99283; 99291; J0171; J0696; J1610; J2250; J2354; J2370; J2405; J2765; J3430; P9016; P9017; P9035